=== PATIENT | female | born 1995 | race Caucasian/White ===

== ENCOUNTER 2021-02-20 05:41 | Inpatient (IN) | payer OTHER ==
[~2021-02-20] VITALS: Ht 167.6 cm; Wt 97.1 kg
[~2021-02-20 05:41] MED LIST: 3IN1 COMMODE; BACTRIM DS TAB1 EACH PO; FLOMAX 0.4 MG0.4 MG PO; GIANVI 3 MG-0.1 EACH PO; PERCOCET 5-3251 EACH PO; ZOFRAN4 MG PO
[2021-02-20 08:25] LABS: BILIRUBIN NEGATIVE (NEGATIVE); BLOOD TRACE-INTACT Ery/uL (NEGATIVE); CLARITY CLEAR (CLEAR); COLOR YELLOW (YELLOW); GLUCOSE (U) NORMAL (NORMAL); LEUKOCYTES NEGATIVE Leu/uL (NEGATIVE); NITRITE NEGATIVE (NEGATIVE); PROTEIN NEGATIVE (NEGATIVE); UROBILINOGEN 0.2 mg/dL (0.2-1.0); pH 6.5 (5.0-9.0)
[2021-02-20 08:30] LABS: ECSTASY (MDMA) NEGATIVE (NEGATIVE); MARIJUANA (THC) NEGATIVE (NEGATIVE); METHADONE NEGATIVE (NEGATIVE); OPIATES NEGATIVE (NEGATIVE)
[2021-02-20 08:31] LABS: AMPHETAMINES NEGATIVE (NEGATIVE); BARBITURATES NEGATIVE (NEGATIVE); OXYCODONE NEGATIVE (NEGATIVE)
[2021-02-20 08:32] LABS: HCT 39.2 % (37.0-47.0); HGB 13.3 g/dl (12.5-16.0); MCH 30.4 pg (25.0-31.0); MCHC 33.9 g/dL (32.0-36.0); MCV 89.5 fL (78.0-100.0); MPV 9.5 fL (6.0-9.5); RBC 4.38 M/uL (4.20-5.40); RDW 11.9 % (11.5-14.0); WBC 11.6 K/uL (4.0-10.5)
[2021-02-20 08:46] LABS: BACTERIA TRACE
[2021-02-21 07:32] LABS: HCT 35.7 % (37.0-47.0); MCH 30.9 pg (25.0-31.0); MCHC 33.6 g/dL (32.0-36.0); MPV 9.4 fL (6.0-9.5); RBC 3.88 M/uL (4.20-5.40); RDW 12.2 % (11.5-14.0); WBC 16.5 K/uL (4.0-10.5)
== END 2021-02-22 19:48 | disposition home or self-care (01) | DRG 807 ==
LOC: FOB 05:41 → FOD 05:41 → FOB 07:01
PROVIDERS: ADMIT Specialist
PROC: 10E0XZZ Delivery of Products of Conception, External Approach (ICD-10-PCS; principal; 2021-02-20)
PROC: 0KQM0ZZ Repair Perineum Muscle, Open Approach (ICD-10-PCS; 2021-02-20)
PROC: 3E0234Z Introduction of Serum, Toxoid and Vaccine into Muscle, Percutaneous Approach (ICD-10-PCS; 2021-02-21)
DX: O99.344 Other mental disorders complicating childbirth (principal); Z37.0 Single live birth; F32.A Depression, unspecified; F41.9 Anxiety disorder, unspecified; O70.1 Second degree perineal laceration during delivery; Z20.822 Contact with and (suspected) exposure to COVID-19; O26.893 Other specified pregnancy related conditions, third trimester; Z67.41 Type O blood, Rh negative; Z23 Encounter for immunization; O69.81X0 Labor and delivery complicated by cord around neck, without compression, not applicable or unspecified; Z3A.38 38 weeks gestation of pregnancy
CPT/HCPCS: 36415; 80305; 81001; 84112; 85461; 86850; 86900; 86901; 90686; J0595; J2001; J2540; J2790; J2795; J7120; U0002